=== PATIENT | male | born 1960 | race Two or more races ===

== ENCOUNTER 2021-12-11 12:23 | Emergency (ER) | payer OTHER ==
[2021-12-11] MEDS ORDERED: Sodium Chloride 0.9% 10 ML Syringe FLUSH PRN (13:03)
[2021-12-11] MEDS ORDERED: Ondansetron 4 MG/2 ML SDV IVPUSH ONE (13:03)
[2021-12-11] MEDS ORDERED: Sodium Chloride 0.9% 1,000 ML IV STA ×2 (13:03→14:18)
[2021-12-11] MEDS ORDERED: Famotidine 20 MG/2 ML SDV IVPUSH ONE (13:05)
== END 2021-12-11 15:42 | disposition home or self-care (01) ==
LOC: JD.ED 12:23
DX: K52.9 Noninfective gastroenteritis and colitis, unspecified (principal); I10 Essential (primary) hypertension
CPT/HCPCS: 36415; 80053; 83690; 83735; 85025; 86140; 96374; 96375; 99284; J2405; J3490; J7030